=== PATIENT | male | born 1990 | race Caucasian/White ===

== ENCOUNTER 2018-10-20 11:23 | Emergency (ER) | payer SELFPAY ==
[~2018-10-20] VITALS: Ht 177.8 cm; Wt 81.8 kg
[2018-10-20 12:52] VITALS: BP 125/77
== END 2018-10-20 14:14 | disposition home or self-care (01) ==
LOC: ER 11:24 → EDBD 11:24 → ER 14:14
DX: S90.121A Contusion of right lesser toe(s) without damage to nail, initial encounter (principal); W22.8XXA Striking against or struck by other objects, initial encounter; Y93.89 Activity, other specified; Y92.89 Other specified places as the place of occurrence of the external cause; Y99.0 Civilian activity done for income or pay
CPT/HCPCS: 73630; 99283